=== PATIENT | female | born 1945 | race Caucasian/White ===

== ENCOUNTER 2022-05-06 17:29 | Emergency (ER) | payer MEDICARE ==
[~2022-05-06] VITALS: Ht 165.1 cm; Wt 61.2 kg
--- NOTE | 2022-05-06 17:30 | NUR ---
Dr. Pappas at bedside. MSE in progress.
--- NOTE | 2022-05-06 17:45 | NUR ---
Dr. Pappas contacted the urologists. ETA 2 - 3 hours
[2022-05-06 18:03] LABS: HEMATOCRIT 37.4 % (31.2-41.9); MEAN CORPUSCULAR HEMOGLOBIN 32.8 uug (24.7-32.8); MEAN CORPUSCULAR VOLUME 98.6 fL (75.5-95.3); PLATELET COUNT (AUTO) 536 K/uL (179-408)
[2022-05-06 18:14] LABS: BILIRUBIN,TOTAL 0.2 mg/dL (0.2-1.0); CREATININE 0.6 mg/dL (0.6-1.3); POTASSIUM 3.2 mmol/L (3.5-5.1); TOTAL PROTEIN, SERUM 7.3 g/dL (6.4-8.2)
--- NOTE | 2022-05-06 19:00 | NUR ---
Report given to Sabrina ZULUAGA.
--- NOTE | 2022-05-06 19:00 | NUR ---
Received pt from MARGARETH Camargo, pt. in bed with caregiver on bedside, stable at this time
--- NOTE | 2022-05-06 20:50 | NUR ---
Urologist change supra pubic cath, intact and draining well, no bleeding noted.
[2022-05-06] MEDS ORDERED: SULF1TAB48 PO (21:00)
--- NOTE | 2022-05-06 21:01 | NUR ---
Dr. Duarte changed the supra pubic medina.
[2022-05-06 21:15] VITALS: BP 120/80
--- NOTE | 2022-05-06 21:15 | NUR ---
Patient discharged to home in stable condition. Written and verbal after care instructions given to patient and caregiver. Patient verbalizes understanding of instructions. Stressed follow up or return to ER for worsening s/s.
== END 2022-05-06 21:00 | disposition home or self-care (01) ==
LOC: ER 17:29
DX: T83.090A Other mechanical complication of cystostomy catheter, initial encounter (principal); Y73.8 Miscellaneous gastroenterology and urology devices associated with adverse incidents, not elsewhere classified; Y92.89 Other specified places as the place of occurrence of the external cause; G95.89 Other specified diseases of spinal cord; Z87.440 Personal history of urinary (tract) infections; I10 Essential (primary) hypertension
CPT/HCPCS: 36415; 85025; A4663